=== PATIENT | male | born 1960 | race African-American/Black ===

== ENCOUNTER 2022-05-09 07:56 | Inpatient (IN) | payer OTHER ==
[~2022-05-09] VITALS: Ht 180.3 cm; Wt 120.0 kg
[2022-05-09 08:39] LABS: Basophils # (auto) 0.1 10 ^3/uL (0-0.2); Basophils % (auto) 0.8 % (0.0-2.0); Eosinophils # (auto) 0.1 10 ^3/uL (0-0.8); Eosinophils % (auto) 0.5 % (0.0-7.0); Hematocrit 40.8 % (41.0-53.0); Hemoglobin 13.8 g/dL (13.5-17.5); Lymphocytes # (auto) 3.4 10 ^3/uL (0.4-5.4); Lymphocytes % (auto) 31.6 % (10.0-50.0); Mean Corpuscular Hemoglobin 32.1 pg (28.0-32.0); Mean Corpuscular Hgb Conc. 33.9 g/dL (32.0-36.0); Mean Corpuscular Volume 94.5 fL (80.0-100.0); Monocytes # (auto) 0.9 10 ^3/uL (0-1.3); Monocytes % (auto) 8.7 % (0.0-12.0); Neutrophils # (auto) 6.2 10 ^3/uL (1.6-8.6); Neutrophils % (auto) 58.4 % (37.0-80.0); Nucleated Red Blood Cells % 0.1 %; Red Blood Cells 4.32 10^6/uL (4.5-5.90); Red Cell Distribution Width 13.3 % (11.8-14.3); White Blood Cell 10.7 10^3/uL (4.4-10.8)
[2022-05-09 09:03] LABS: Albumin 3.8 g/dL (3.4-5.0); Calcium 9.1 mg/dL (8.5-10.1); Potassium 3.7 mmol/L (3.5-5.1)
[2022-05-09 09:06] LABS: Bilirubin, Total 0.6 mg/dL (0.2-1.0); Total Protein 7.6 g/dL (6.4-8.2)
[2022-05-09] MEDS ORDERED: SODIUM CHLORIDE 0.9% 1,000 ML IV ONE (09:15)
[2022-05-09] MEDS ORDERED: HYDROmorphone HCL 2 MG/ML VL/or syr IV ONE (09:15)
[2022-05-09] MEDS ORDERED: METOCLOPRAMIDE HCL 5MG/ml INJ 2ml VIAL IV ONE (09:15)
[2022-05-09 11:23] LABS: Urine Bacteria NONE SEEN /hpf (None Seen); Urine Blood Negative /uL (Negative); Urine Mucus FEW (None Seen); Urine Specific Gravity 1.024 (1.001-1.035); Urine WBC 1 /hpf (0 - 3)
[2022-05-09 12:07] LABS: Magnesium 2.2 mg/dL (1.6-2.6)
[2022-05-09] MEDS ORDERED: cefTRIAXone 1GM/50ML D5W 50 ML IV ONE (12:30)
[2022-05-09] MEDS ORDERED: ACETAMINOPHEN 325 MG TAB PO PRN ×2 (12:30→15:15)
[2022-05-09] MEDS ORDERED: ONDANSETRON HCL 4 MG/2 ML VIAL IV PRN ×2 (12:30→15:15)
[2022-05-09] MEDS ORDERED: PANTOPRAZOLE 40 MG/10 ML VIAL INJ IV ONE (12:30)
[2022-05-09] MEDS ORDERED: KETOROLAC TROMETH 30 MG/ML 1ML VIAL IV PRN ×2 (12:30→15:15)
[2022-05-09] MEDS ORDERED: SODIUM CHLORIDE 0.9% 1,000 ML IV SCH (12:30)
[2022-05-09] MEDS ORDERED: HYDROcodone-ACET 5/325MG TAB PO PRN (12:30)
[2022-05-09] MEDS ORDERED: metroNIDAZOLE 500MG/100ML 100 ML IV ONE (12:30)
[2022-05-09 13:15] LABS: Cholesterol 143 mg/dL (< 200); Triglycerides 46 mg/dL (< 150)
[2022-05-09 13:17] LABS: HDL Cholesterol 45 mg/dL (40-59); LDL Cholesterol 101 mg/dL (< 100)
[2022-05-09 15:56] LABS: Cholesterol 131 mg/dL (< 200); HDL Cholesterol 48 mg/dL (40-59); LDL Cholesterol 89 mg/dL (< 100); Triglycerides 43 mg/dL (< 150)
[2022-05-09] MEDS: SODIUM CHLORIDE 0.9% 1,000 ML IV SCH ×2 (16:32→23:35)
[2022-05-09 19:07] VITALS: BP_SYST 126; BP_SYST 130; BP_DIAS 64; BP_DIAS 90
[2022-05-09 20:00] VITALS: BP 130/90
[2022-05-09] MEDS ORDERED: LISI20TA28 PO (20:09)
[2022-05-09] MEDS: metroNIDAZOLE 500MG/100ML 100 ML IV SCH (21:55)
[2022-05-09 22:29] VITALS: BP 130/90
[2022-05-10 05:16] VITALS: BP 101/64
[2022-05-10] MEDS: metroNIDAZOLE 500MG/100ML 100 ML IV SCH ×2 (05:52→14:00)
[2022-05-10 06:13] LABS: Basophils # (auto) 0 10 ^3/uL (0-0.2); Basophils % (auto) 0.5 % (0.0-2.0); Eosinophils # (auto) 0.1 10 ^3/uL (0-0.8); Hematocrit 41.4 % (41.0-53.0); Lymphocytes # (auto) 2.7 10 ^3/uL (0.4-5.4); Lymphocytes % (auto) 30.2 % (10.0-50.0); Mean Corpuscular Hemoglobin 31.9 pg (28.0-32.0); Mean Corpuscular Hgb Conc. 33.8 g/dL (32.0-36.0); Mean Corpuscular Volume 94.5 fL (80.0-100.0); Monocytes # (auto) 0.7 10 ^3/uL (0-1.3); Monocytes % (auto) 7.6 % (0.0-12.0); Neutrophils # (auto) 5.4 10 ^3/uL (1.6-8.6); Neutrophils % (auto) 60.7 % (37.0-80.0); Nucleated Red Blood Cells % 0.1 %; Red Blood Cells 4.38 10^6/uL (4.5-5.90); Red Cell Distribution Width 13.2 % (11.8-14.3)
[2022-05-10 06:30] LABS: Albumin 3.5 g/dL (3.4-5.0); Calcium 8.7 mg/dL (8.5-10.1); Potassium 3.9 mmol/L (3.5-5.1)
[2022-05-10 06:34] LABS: BUN/Creatinine Ratio 9.3; Bilirubin, Total 1.1 mg/dL (0.2-1.0); Total Protein 7.2 g/dL (6.4-8.2)
[2022-05-10 07:47] VITALS: BP 130/90
[2022-05-10] MEDS: SODIUM CHLORIDE 0.9% 1,000 ML IV SCH (07:55)
[2022-05-10 09:00] VITALS: BP 109/73
[2022-05-10] MEDS ORDERED: cefTRIAXone 1GM/50ML D5W 50 ML IV SCH (09:00)
[2022-05-10] MEDS ORDERED: PANTOPRAZOLE 40 MG/10 ML VIAL INJ IV SCH (10:00)
[2022-05-10] MEDS ORDERED: ENOXAPARIN SOD 40 MG/0.4 ML SYRINGE SC SCH ×2 (10:00)
[2022-05-10 12:29] VITALS: BP 103/70
[2022-05-10] MEDS ORDERED: CIPR-173 PO (16:20)
== END 2022-05-10 16:49 | disposition home or self-care (01) | DRG 392 ==
LOC: ER 07:56 → OVERFLOW 12:28 → WEST WING 17:49
PROVIDERS: ADMIT Nurse Practitioner Family; ATTEND Nurse Practitioner Family
DX: K57.32 Diverticulitis of large intestine without perforation or abscess without bleeding (principal); M21.611 Bunion of right foot; Z20.822 Contact with and (suspected) exposure to COVID-19; I10 Essential (primary) hypertension; E66.01 Morbid (severe) obesity due to excess calories; Z68.36 Body mass index [BMI] 36.0-36.9, adult
CPT/HCPCS: 36415; 71046; 74176; 80053; 80061; 81001; 83036; 83690; 83735; 84443; 84484; 85025; 87426; 93005; 96361; 96365; 96368; 96375; C9113; G0378; J0696; J3490

== ENCOUNTER 2022-12-08 10:36 | Emergency (ER) | payer OTHER ==
[~2022-12-08] VITALS: Ht 180.3 cm; Wt 123.2 kg
[~2022-12-08 10:36] MED LIST: CIPR-173 PO; LISI20TA56 PO
[2022-12-08 11:52] LABS: Urine Bacteria NONE SEEN /hpf (None Seen); Urine Blood Negative /uL (Negative); Urine Mucus FEW (None Seen); Urine Specific Gravity 1.025 (1.001-1.035); Urine WBC <1 /hpf (0 - 3)
[2022-12-08 12:12] LABS: Hematocrit 42.1 % (41.0-53.0); Hemoglobin 14.3 g/dL (13.5-17.5); Mean Corpuscular Hemoglobin 32.3 pg (28.0-32.0); Mean Corpuscular Hgb Conc. 33.9 g/dL (32.0-36.0); Mean Corpuscular Volume 95.3 fL (80.0-100.0); Red Blood Cells 4.42 10^6/uL (4.5-5.90); Red Cell Distribution Width 13.3 % (11.8-14.3); White Blood Cell 6.2 10^3/uL (4.4-10.8)
[2022-12-08 12:16] LABS: Band Neutrophils % (manual) 0; Basophils % (manual) 0 (0.0-2.0); Blast Cells 0; Metamyelocytes % 0; Myelocytes % 0; Promyelocytes % 0
[2022-12-08 12:33] LABS: Albumin 4.1 g/dL (3.4-5.0); Calcium 8.9 mg/dL (8.5-10.1); Potassium 3.9 mmol/L (3.5-5.1)
[2022-12-08 12:38] LABS: BUN/Creatinine Ratio 12.6 (10.0-20.0); Bilirubin, Total 0.9 mg/dL (0.2-1.0); Total Protein 7.3 g/dL (6.4-8.2)
[2022-12-08 12:56] LABS: Eosinophils % (manual) 1 (0-7); Lymphocytes % (manual) 67 (10.0-50.0); Monocytes % (manual) 4 (0-12); Reactive Lymphocytes 1
[2022-12-08] MEDS ORDERED: fentaNYL CITRATE 100 MCG/2 ML VL IV ONE (13:15)
[2022-12-08] MEDS ORDERED: SODIUM CHLORIDE 0.9% 1,000 ML IV ONE (13:15)
[2022-12-08] MEDS ORDERED: cefTRIAXone 1GM/50ML D5W 50 ML IV ONE (13:45)
[2022-12-08 14:31] VITALS: BP 139/101
[2022-12-08 15:06] LABS: Basophils % (manual) 0 (0.0-2.0); Blast Cells 0; Eosinophils % (manual) 0 (0-7); Metamyelocytes % 0; Myelocytes % 0; Promyelocytes % 0; Reactive Lymphocytes 0
[2022-12-08 15:56] LABS: Band Neutrophils % (manual) 2; Lymphocytes % (manual) 55 (10.0-50.0); Monocytes % (manual) 6 (0-12)
[2022-12-08] MEDS ORDERED: KETOROLAC TROMETH 60MG/2ML VIAL IV ONE (16:15)
[2022-12-08] MEDS ORDERED: CEPH500C PO (16:26)
[2022-12-08] MEDS ORDERED: HYDR1TAB97 PO ×2 (16:26)
[2022-12-09] MEDS ORDERED: HYDR1TAB97 PO (11:46)
[2022-12-09] MEDS ORDERED: CEPH500C PO (11:46)
== END 2022-12-08 16:35 | disposition home or self-care (01) ==
LOC: ER 10:36
DX: M54.59 Other low back pain (principal); I10 Essential (primary) hypertension; Z79.899 Other long term (current) drug therapy
CPT/HCPCS: 36415; 74176; 80053; 81001; 83605; 84484; 85007; 85027; 86141; 87040; 87086; 96365; 96375; 99285; J0696; J1885; J3010; J7030